=== PATIENT | female | born 1980 | race Caucasian/White ===

== ENCOUNTER → 2018-05-26 10:03 | Outpatient (CLI) | payer MEDICARE, MEDICAID, SELFPAY ==
[2018-05-26 12:07] LABS: BUN Creatinine Ratio 16.7 (6-22); Blood Urea Nitrogen 15 mg/dL (7-17); Calcium 9.6 mg/dL (8.4-10.2); Carbon Dioxide 28 mmol/L (22-32); Chloride 100 mmol/L (98-107); Estimated Glomerular Filt Rate > 60.0 mL/min (>60); Glucose 94 mg/dL (70-100); HEMOLYSIS < 15 (0-50); Potassium 4.2 mmol/L (3.4-5.1); Sodium 141 mmol/L (137-145)
== END ==
PROVIDERS: Family Provider Internal Medicine; PCP Internal Medicine; Visit Provider Internal Medicine Cardiovascular Disease
DX: I42.8 Other cardiomyopathies (principal)
CPT/HCPCS: 36415; 80048

== ENCOUNTER → 2019-05-15 19:15 | Outpatient (CLI) | payer MEDICARE, MEDICAID, SELFPAY ==
--- NOTE | 2019-05-15 | DI.MRI.S_ITS ---
PROCEDURE: MR KNEE RT WO CON INDICATIONS: CONTUSION OF RT KNEE, SUBSEQUENT ENCOUNTER TECHNIQUE: Noncontrast sagittal PD fast spin echo and T2 fast spin echo with fat saturation, sagittal 3-D FLASH with fat saturation; coronal T1 spin echo and PD fast spin echo with fat saturation, and axial PD fast spin echo with fat saturation through the knee. COMPARISON: [facility] Outside Film, MR, MR KNEE RIGHT WITHOUT CONTRAST, 01/11/2019, 12:46. [facility] Outside Film, RG, KNEE 3VW (RT), 12/31/2018, 12:21. FINDINGS: Image quality: Excellent. Menisci: The medial and lateral menisci demonstrate normal morphology and internal signal. The meniscal root ligaments appear intact. Cruciate ligaments: The anterior and posterior cruciate ligaments appear intact. Medial structures: The medial collateral ligament appears intact. Visualized portions of the pes anserinus tendons appear normal. No abnormal bursal fluid. Lateral structures: The lateral collateral ligament, long and short heads of the biceps femoris tendon appear intact. The popliteus tendon appears normal. Iliotibial band appears normal. Anterior structures: The quadriceps and patellar tendons appear intact. Patellar alignment is normal. No femoral trochlear dysplasia or ventral trochlear prominence. No edema in the infrapatellar fat pad. Bones and cartilage: No bone marrow contusions or fractures. Articular cartilage fibrillation overlies the medial patellar facet. Mild diffuse articular cartilage loss overlies the weightbearing aspect of the medial femoral condyle and medial tibial plateau. Joint space: There is physiologic knee joint fluid. Trace Santos's cyst. Normal appearing synovial plicae are incidentally noted. IMPRESSION: 1. No internal derangement. 2. Mild medial and patellofemoral compartment articular cartilage loss. 3. Trace Santos's cyst. Dictated by: Ricardo Little M.D. on 05/16/2019 at 8:57 Approved by: Ricardo Little M.D. on 05/16/2019 at 9:00
--- NOTE | 2019-05-15 | DI.MRI.S_ITS ---
PROCEDURE: MR FEMUR RT WO CON INDICATIONS: CONTUSION OF RT KNEE, SUBSEQUENT ENCOUNTER TECHNIQUE: Noncontrast coronal and sagittal T1 spin echo and STIR; axial T1 spin echo and T2 fast spin echo with fat saturation through the right femur. COMPARISON: None. FINDINGS: Image quality: Excellent. Bones: The visualized bone marrow demonstrates normal signal on all sequences. The overlying cortex appears intact. No fractures lines or intra-osseous lesions. Soft tissues: The scanned muscles demonstrate normal overall bulk and internal signal. Subcutaneous tissues appear normal as well. No soft tissue masses are present. IMPRESSION: 1. No marrow edema. No fracture or dislocation. 2. No right thigh muscle signal abnormality. No soft tissue mass or fluid collection. No evidence of muscle or tendon rupture. Dictated by: Curtis Garcia M.D. on 05/16/2019 at 9:15 Approved by: Curtis Garcia M.D. on 05/16/2019 at 9:20
== END ==
PROVIDERS: Family Provider Internal Medicine; PCP Internal Medicine; Visit Provider Physician Assistant Surgical
DX: S80.01XD Contusion of right knee, subsequent encounter (principal)
CPT/HCPCS: 73718; 73721

== ENCOUNTER → 2023-02-17 10:57 | Outpatient (CLI) | payer MEDICARE, MEDICAID, SELFPAY ==
--- NOTE | 2023-02-17 | DI.MRI.S_ITS ---
PROCEDURE: MR ANGIO HEAD WO CON INDICATIONS: Disequilibrium Orthostatic dizziness TECHNIQUE: Noncontrast axial 3-D [id number] MR angiogram, with 3-dimensional maximum intensity projection (MIP) reformats of the internal carotid arteries and posterior circulation then performed. COMPARISON: None. FINDINGS: Image quality: Excellent. Anterior circulation: Intracranial internal carotid arteries demonstrate normal size and intraluminal flow signal. The flow within the paired anterior cerebral arteries is normal and symmetric. The flow within the middle cerebral arteries is normal and symmetric. The anterior communicating artery is seen. No stenoses, occlusions, or aneurysms. Posterior circulation: Visualized portions of the vertebral arteries demonstrate normal caliber, and join to form a normal appearing basilar artery. The flow within the posterior cerebral arteries is normal and symmetric. No stenoses, occlusions, or aneurysms. IMPRESSION: Negative cerebral MR angiography. Dictated by: Ricardo Little M.D. on 02/17/2023 at 14:47 Transcribed by: MARCUS on 02/17/2023 at 14:48 Approved by: Ricardo Little M.D. on 02/17/2023 at 16:22
--- NOTE | 2023-02-17 | DI.US.S_ITS ---
PROCEDURE: US CAROTID DOPPLER BI INDICATIONS: DISEQUILIBRIUM ORTHOSTATIC DIZZINESS TECHNIQUE: Color and pulse Doppler interrogation was performed of both carotid systems, with image documentation and velocity measurements. COMPARISON: None. FINDINGS: Stenosis calculations are based on SRU (S[employer] in Ultras[employer]) criteria. Right side: Brachial blood pressure: 17/74 mm Hg. Common carotid artery peak systolic velocity: 61 cm/sec. Internal carotid artery peak systolic velocity: 105 cm/sec. Internal carotid artery end diastolic velocity: 22 cm/sec. External carotid artery peak systolic velocity: 73 cm/sec. ICA/CCA peak systolic ratio: 1.7 . Guaman scale imaging description: Mild atherosclerotic plaque Percent internal carotid artery stenosis: Less than 50 Vertebral artery: Flow direction is antegrade. Left side: Brachial blood pressure: 84/49 mm Hg. Common carotid artery peak systolic velocity: 94 cm/sec. Internal carotid artery peak systolic velocity: 80 cm/sec. Internal carotid artery end diastolic velocity: 33 cm/sec. External carotid artery peak systolic velocity: 85 cm/sec. ICA/CCA peak systolic ratio: 0.8 . Guaman scale imaging description: Mild sclerotic plaque Percent internal carotid artery stenosis: Less than 50 . Vertebral artery: Flow direction is antegrade. IMPRESSION: Peak systolic velocities and ratios are consistent less than 50% stenosis bilateral proximal internal carotid arteries Approved by: Lionel Prajapati M.D. on 02/17/2023 at 17:36
--- NOTE | 2023-02-17 | DI.MRI.S_ITS ---
PROCEDURE: MR HEAD/BRAIN WO CON INDICATIONS: Disequilibrium Orthostatic dizziness TECHNIQUE: Noncontrast axial T1 spin echo, axial T2 fast spin echo, sagittal and axial FLAIR, coronal T2 fast spin echo, axial gradient echo, axial diffusion and ADC through the brain. COMPARISON: None. FINDINGS: Image quality: Partially degraded by motion artifact. CSF Spaces: Basal cisterns are patent. No extra-axial fluid collections. Ventricles are normal in size and shape. Brain: No intracranial masses or hemorrhage. Guaman/white matter interface is normal. Brainstem appears normal. Diffusion-weighted images demonstrate no acute ischemic insult. No chronic ischemic insults. Normal intravascular flow voids are present. Skull and face: Calvarium has normal marrow signal. Orbits appear normal. Sinuses: Sinuses and mastoids are clear. IMPRESSION: 1. No acute process. No recent infarct. 2. No explanation for dizziness. Dictated by: Ricardo Little M.D. on 02/17/2023 at 14:48 Transcribed by: MARCUS on 02/17/2023 at 14:49 Approved by: Ricardo Little M.D. on 02/17/2023 at 16:22
== END ==
PROVIDERS: Family Provider Internal Medicine; PCP Internal Medicine; Referring Provider Psychiatry & Neurology Neurology; Visit Provider Psychiatry & Neurology Neurology
DX: R42 Dizziness and giddiness (principal)
CPT/HCPCS: 70544; 70551; 93880

== ENCOUNTER → 2024-10-09 12:37 | Outpatient (CLI) | payer MEDICARE, MEDICAID, SELFPAY ==
--- NOTE | 2024-10-09 12:40 | DI.US.S_ITS ---
PROCEDURE: US ART LOW EXT BILAT W/MARCO INDICATIONS: PERIPHERAL ARTERIAL OCCLUSIVE DISEASE TECHNIQUE: Color and pulse Doppler interrogation was performed of both lower extremity arterial systems, with image documentation. COMPARISON: None. FINDINGS: Right lower extremity: Common femoral artery: 111.2 cm/sec, with triphasic flow. Deep femoral artery: 57.2 cm/sec, with triphasic flow. Proximal superficial femoral artery: 82.3 cm/sec, with triphasic flow. Mid superficial femoral artery: 59.8 cm/sec, with triphasic flow. Distal superficial femoral artery: 47.6 cm/sec, with triphasic flow. Popliteal artery: 57.8 cm/sec, with triphasic flow. Posterior tibial artery: 79.1 cm/sec, with triphasic flow. Anterior tibial artery/dorsalis pedis: 32.1 cm/sec, with triphasic flow. Guaman-scale imaging description: No significant atheromatous disease Left lower extremity: Common femoral artery: 107 cm/sec, with triphasic flow. Deep femoral artery: 59.3 cm/sec, with triphasic flow. Proximal superficial femoral artery: 94.7 cm/sec, with triphasic flow. Mid superficial femoral artery: 84.6 cm/sec, with triphasic flow. Popliteal artery: 39.8 cm/sec, with triphasic flow. Posterior tibial artery: 78.8 cm/sec, with triphasic flow. Anterior tibial artery/dorsalis pedis: 52.8 cm/sec, with triphasic flow. Guaman-scale imaging description: No significant atheromatous disease IMPRESSION: 1-19% stenosis of the bilateral common femoral arteries and posterior tibial arteries. Dictated by: Tino Blackburn M.D. on 10/09/2024 at 22:07 Approved by: Tino Blackburn M.D. on 10/09/2024 at 22:11
== END ==
PROVIDERS: Family Provider Internal Medicine; PCP Internal Medicine; Referring Provider Family Medicine; Visit Provider Family Medicine
DX: I77.9 Disorder of arteries and arterioles, unspecified (principal); I42.9 Cardiomyopathy, unspecified
CPT/HCPCS: 36415; 82384; 93922; 93925

== ENCOUNTER → 2024-10-09 12:40 | Outpatient (CLI) | payer MEDICARE, MEDICAID, SELFPAY | PROVIDERS: Family Provider Internal Medicine; PCP Internal Medicine; Referring Provider Internal Medicine Cardiovascular Disease; Visit Provider Internal Medicine Cardiovascular Disease | DX: I42.9 Cardiomyopathy, unspecified (principal) | CPT/HCPCS: 36415; 82384 ==